=== PATIENT | female | born 2000 | race American Indian/Alaskan Native ===

== ENCOUNTER 2021-05-19 20:48 | Inpatient (IN) | payer MEDICAID ==
[2021-05-19] MEDS ORDERED: diphenhydrAMINE 25 MG CAP PO PRN (20:54)
[2021-05-19] MEDS ORDERED: oxyCODONE /ACETAMINOPHEN 5-325MG TAB PO PRN (20:54)
[2021-05-19] MEDS ORDERED: ONDANSETRON 4 MG/2 ML INJ IV PRN (20:54)
[2021-05-19] MEDS ORDERED: PROMETHAZINE 25 MG TAB PO PRN (20:54)
[2021-05-19] MEDS ORDERED: METHYLERGONOVINE MALEATE 0.2 MG/ML VIAL IM PRN (20:54)
[2021-05-19] MEDS ORDERED: BENZOCAINE/MENTHOL 20/0.5% TOP SPRAY 56 GM TP PRN (20:54)
[2021-05-19] MEDS ORDERED: MAGNESIUM HYDROXIDE (MOM) ORAL LIQD UDC PO PRN (20:54)
[2021-05-19] MEDS ORDERED: miSOPROStol 200 MCG TAB PR PRN (20:54)
[2021-05-19] MEDS ORDERED: LANOLIN/ZINC/DIMETHICONE (LANSINOH) 7 GM TP PRN ×2 (20:54)
[2021-05-19] MEDS ORDERED: PROMETHAZINE 25 MG RECT SUPP PR PRN (20:54)
[2021-05-19] MEDS ORDERED: LOPERAMIDE 2 MG CAP PO PRN (20:54)
[2021-05-19] MEDS ORDERED: ACETAMINOPHEN 325 MG TAB PO PRN (20:54)
[2021-05-19] MEDS ORDERED: WITCH HAZEL/ GLYCERIN PAD TP PRN (20:54)
[2021-05-19] MEDS ORDERED: CARBOPROST TROMETHAMINE 250 MCG/1 ML INJ IM PRN (20:54)
--- NOTE | 2021-05-19 20:54 | History and Physical Report ---
History of Present Illness Date of examination: 05/19/21 Date of admission: 05/19/21 20:48 Chief complaint: I started prateek this AM. Later on today my water broke and the baby delivered. History of present illness: Pt is a 21 y.o. who delivered at home this evening. Her stated EDC 05/20/21 making her 39.6 @ delivery. She states that she started prateek this AM. She then SROM at an unknown time. Per patient, the baby delivered around 1916. The placenta delivered shortly after baby delivered. Past History Past Medical History: no pertinent history Past Surgical History: appendectomy Social history: no significant social history, single - Obstetrical History Expected Date of Delivery: 05/20/21 Actual Gestation: 39 Week(s) 6 Day(s) : 1 Para: 1 Hx # Term Pregnancies: 1 Number of Pregnancies: 0 Spontaneous Abortions: 0 Induced : 0 Number of Living Children: 0 Review of Systems All systems: negative - Physical Exam Breasts: Positive: deferred Cardiovascular: Regular rate Lungs: Positive: Normal air movement Abdomen: Positive: normal appearance, soft Genitourinary (Female): Positive: normal external genitalia, normal perenium Vulva: both: normal Uterus: Positive: normal size (Firm, minimal vaginal bleeding noted.) Extremities: Positive: normal Results All other labs normal. GBS UNKNOWN LABS DRAWN ON ADMISSION. Assessment and Plan A: 21 y.o. , home delivery @ 39.6 wks, male infant. - Patient Problems (1) Spontaneous vaginal delivery Onset Date: ~05/19/21 Current Visit: Yes Status: Acute Plan to address problem: Admit to labor and delivery then transfer to mother/baby. Initiate IV. Draw admission and panel. Send UDS. IV Pitocin per protocol once IV started.
--- NOTE | 2021-05-19 20:54 | Procedure Note ---
OB Delivery Note - Delivery Date of Delivery: 05/19/21 Crystal Attacher: JAYME WILLS Estimated blood loss: <100cc - Vaginal Delivery presentation: vertex Intrapartum events: precipitous labor- <3hr Delivery induction: none Route of delivery: Delivery placenta: spontaneous Delivery cord: 3 umbilical vessels Episiotomy: none Delivery laceration: none Anesthesia: none Delivery comments: Pt is a walk in patient who presented via EMS after a home delivery. Delivery occurred around 1916. Unknown SROM. Male infant with unknown Apgars. weight 7-7. Placenta was brought with the patient and inspected. Appears to be intact, complete, with 3 vessels noted. Small amount of clots expressed upon admission to labor and delivery by RN. Fundus firm, minimal bleeding noted. Perineum inspected, no lacerations noted. Mother and infant left in care of RN in stable condition. - Infant A Infant Gender: Male (weight 7-7)
[2021-05-19] MEDS: IBUPROFEN 800 MG TAB PO SCH (23:51)
[2021-05-20 00:23] LABS: Basophils % (Auto) 0.1 % (0.0-1.8); Hematocrit 31.9 % (30.3-42.9); Lymphocytes # (Auto) 0.9 K/mm3 (1.2-5.4); Mean Corpuscular HGB Conc 31 % (30-34); Mean Corpuscular Volume 80 fl (79-97); Monocytes # (Auto) 0.7 K/mm3 (0.0-0.8); Monocytes % (Auto) 4.6 % (0.0-7.3); Platelet Count 126 K/mm3 (140-440); Red Cell Distribution Width 15.3 % (13.2-15.2)
[2021-05-20 00:24] LABS: Basophils % (Auto) 0.1 % (0.0-1.8); Hematocrit 32.1 % (30.3-42.9); Hemoglobin 9.9 gm/dl (10.1-14.3); Lymphocytes # (Auto) 0.8 K/mm3 (1.2-5.4); Lymphocytes % (Auto) 5.3 % (13.4-35.0); Mean Corpuscular HGB Conc 31 % (30-34); Mean Corpuscular Volume 80 fl (79-97); Monocytes # (Auto) 0.7 K/mm3 (0.0-0.8); Monocytes % (Auto) 4.8 % (0.0-7.3); Platelet Count 125 K/mm3 (140-440); Red Cell Distribution Width 14.9 % (13.2-15.2)
[2021-05-20 00:31] LABS: Hepatitis C Virus Antibody Non-Reactive (NonReactive)
[2021-05-20] MEDS ORDERED: TETANUS,DIPH,PERTUSS(ACELL) VACCINE 0.5 ML SYRINGE IM ONE (06:00)
--- NOTE | 2021-05-20 06:34 | Progress Note ---
Assessment and Plan A: 21 y.o. 10 hrs . S/p @ home. P: Continue with care. Anticipate discharge home on 05/21. - Patient Problems (1) Spontaneous vaginal delivery Onset Date: ~05/19/21 Current Visit: Yes Status: Acute Subjective - Subjective Principal diagnosis: Walk in patient home delivery @ 39.6 wks. Patient reports: appetite normal, voiding normally, pain well controlled, flatus, ambulating normally [place]: doing well Objective - Vital Signs Latest vital signs: Vital Signs Resp Pulse Ox 05/19/21 23:52 16 05/19/21 23:51 16 05/19/21 21:00 100 Intake and Output 05/19/21 05/19/21 05/20/21 14:59 22:59 06:59 Other: # Voids Void 1 Weight 363 lb 12.203 oz Patient Weight 05/20/21 06:59 Weight 363 lb 12.203 oz - Exam Breasts: Present: deferred Cardiovascular: Present: Regular rate Lungs: Present: Normal air movement Abdomen: Present: normal appearance, soft Vulva: both: normal Uterus: Present: normal, firm - Labs Labs: Abnormal lab results 05/19/21 05/19/21 Range/Units 23:36 23:36 WBC 15.0 H 15.1 H (4.5-11.0) K/mm3 Hgb 9.9 L 10.0 L (10.1-14.3) gm/dl MCH 25 L 25 L (28-32) pg RDW 15.3 H (13.2-15.2) % Plt Count 125 L 126 L (140-440) K/mm3 Lymph % (Auto) 5.3 L 6.0 L (13.4-35.0) % Lymph # (Auto) 0.8 L 0.9 L (1.2-5.4) K/mm3 Seg Neutrophils % 89.8 H 89.3 H (40.0-70.0) % Seg Neutrophils # 13.4 H 13.5 H (1.8-7.7) K/mm3
[2021-05-20] MEDS: IBUPROFEN 800 MG TAB PO SCH ×3 (12:48→23:30)
[2021-05-20] MEDS: DOCUSATE SODIUM 100 MG CAP PO SCH ×2 (12:49→23:30)
[2021-05-20] MEDS: PRENATAL VIT27-FE FUMARATE-FOLIC ACID VIT TAB PO SCH (12:50)
[2021-05-20 19:04] LABS: Bacteria,Urine 1+ /HPF (Negative); Bilirubin,Urine NEG (Negative); Blood,Urine LG (Negative); Color,Urine Red (Yellow); Mucus,Urine FEW /HPF; Urobilinogen,Urine < 2.0 mg/dL (<2.0)
[2021-05-20 19:07] LABS: Amphetamine Screen,Urine PRESUMPTIVE NEGATIVE; Benzodiazepines Screen,Urine PRESUMPTIVE NEGATIVE; Cannabinoid Screen,Urine PRESUMPTIVE NEGATIVE; Cocaine Screen,Urine PRESUMPTIVE NEGATIVE; Methadone Screen,Urine PRESUMPTIVE NEGATIVE; Opiate Screen,Urine PRESUMPTIVE NEGATIVE
[2021-05-20 19:13] LABS: RBC,Urine > 182.0 /HPF (0.0-6.0)
[2021-05-21 05:57] LABS: Hemoglobin 9.1 gm/dl (10.1-14.3)
[2021-05-21] MEDS: DOCUSATE SODIUM 100 MG CAP PO SCH (10:19)
[2021-05-21] MEDS: PRENATAL VIT27-FE FUMARATE-FOLIC ACID VIT TAB PO SCH (10:19)
--- NOTE | 2021-05-21 12:28 | Discharge Summary ---
Providers - Providers Date of Admission: 05/19/21 20:48 Date of discharge: 05/21/21 Attending physician: VENUS BRANTLEY MD Primary care physician: RETORT FIREMAN Hospitalization Reason for admission: active labor, IUP at term Delivery: Episiotomy: none Laceration: none Other procedures: none complications: none Discharge diagnosis: IUP at term delivered (At home) baby: male Hospital course: See dictated H&P. Patient was admitted after a spontaneous vaginal delivery at home. Her course was benign. She was afebrile throughout her stay. Her day 1 hematocrit was 29%. Patient plans to bottlefeed and will follow up with Dr. Shane for her care. Condition at discharge: Good Disposition: 01 HOME / SELF CARE / HOMELESS - Discharge Diagnoses (1) Spontaneous vaginal delivery Status: Acute Plan - Discharge Medications Prescriptions: Ibuprofen [Motrin] 800 mg PO TID PRN #30 tablet PRN Reason: Pain - Provider Discharge Summary Activity: routine, no sex for 6 weeks, no strenuous exercise Diet: routine Instructions: routine Additional instructions: [] Smoking cessation referral if applicable(refer to patient education folder for contact #) [] Refer to [facility] Booklet Call your doctor immediately for: * Fever > 100.5 * Heavy vaginal bleeding ( >1 pad per hour) * Severe persistent headache * Shortness of breath * Reddened, hot, painful area to leg or breast * Drainage or odor from incision. * - Follow up plan Follow up: PRIMARY MD PHYLLIS [Primary Care Provider] - 7 Days
[2021-05-21] MEDS: IBUPROFEN 800 MG TAB PO SCH (12:51)
[2021-05-22 03:22] VITALS: BP 132/91
--- NOTE | 2021-05-22 10:59 | Electrocardiograph Report ---
[facility] Test Date: 2021-05-21 Test Time: 18:00:08 Pat Name: WESLEY CLARKE Department: Room: [facility] 1 Gender: F Machine Tender: IVIS SERRANO : 2000 Requested By: ROSETTE PADILLA Order Number: [id number] Reading MD: Julisa Soares Measurements Intervals [place] Rate: 136 P: 38 NM: 99 QRS: 38 QRSD: 75 T: 22 QT: 295 QTc: 443 Interpretive Statements Sinus tachycardia No previous ECG available for comparison Electronically Signed On 05-22-2021 10:59:34 EST by Julisa Soares
== END 2021-05-22 03:00 | disposition home or self-care (01) | DRG 776 ==
LOC: LD 20:48 → OB 05-20 08:45
PROVIDERS: ADMIT Student in an Organized Health Care Education/Training Program; ATTEND Student in an Organized Health Care Education/Training Program
DX: Z39.0 Encounter for care and examination of mother immediately after delivery (principal); O98.53 Other viral diseases complicating the puerperium; U07.1 COVID-19
CPT/HCPCS: 36415; 80307; 81001; 85014; 85018; 85025; 86592; 86706; 86762; 86803; 86900; 86901; 87806; 93005; G0378; U0003